=== PATIENT | female | born 1940 | race Caucasian/White ===

== ENCOUNTER 2025-02-10 01:35 | Emergency (ER) | payer MEDICARE, SELFPAY ==
[2025-02-10] VITALS (8 sets, daily range): BP systolic 142–192; BP diastolic 56–83; BMI 23.0
[2025-02-10] MEDS: ZOFRAN 4 MG IV (03:23)
[2025-02-10] MEDS: NSS 500 IV (03:23)
[2025-02-10 04:05] LABS: Hematocrit 43.8 % (37.0-47.0); Hemoglobin 14.9 g/dL (12.0-16.0); Mean Corp Hgb Conc. 34.0 g/dL (33.0-37.0); Mean Corpuscular Volume 88.0 fL (81.0-99.0); Nucleated Red Blood Cells % 0 %; Platelet Count 222 10^3/uL (130-400); Red Cell Dist. Width 12.4 % (11.5-14.5)
[2025-02-10 04:06] LABS: Urine Character Clear (Clear)
[2025-02-10 04:14] LABS: Urine Squamous Cell 0-2 /LPF (Few)
--- NOTE | 2025-02-10 04:18 | ED.GENMED ---
History of Present Illness
General
Chief Complaint: Abdominal Symptoms
Source: patient and family
Exam Limitations: none
Time Seen by Provider: 02/10/25 02:45
Nursing documentation reviewed up to this point in time: agreed with
History of Present Illness
History of Present Illness:
84-year-old female presenting to the emergency department today with concerns of left lower quadrant abdominal pain also has associated nausea vomiting diarrhea over the past 6 hours or so. Denies any chest pain shortness of breath. Denies fevers.
Review of Systems
Review of Systems
Allergies reviewed?: Yes
All Other Systems: ROS reviewed and negative except as documented in HPI and ROS
Phy Exam
Physical Exam
Physical Exam:
GENERAL: Alert , in no apparent distress
EYE: pupils equal and reactive
NECK: Supple, no significant adenopathy.
ENT: o/p clr, mmm.
CARDIAC: Regular rate and rhythm .
LUNGS: Clear breath sounds bilaterally, no acute respiratory distress, no wheezes/rales/rhonchi
ABDOMEN: Left lower quadrant pain to palpation otherwise soft benign abdomen.
NEUROLOGICAL: Alert and oriented, no focal neuro deficits
SKIN: Warm and dry, skin intact.
MUSCULOSKELETAL: No edema, well perfused.
PSYCH: Normal and appropriate interaction.
Course
Orders/Labs/Results
Orders:
Orders
02/10/25 03:13
CT Abd/Pel (IV only)-[facility] only Urgent
Comment:
Reason For Exam: llq pain
0.9% Sodium Chloride 500 ml [Nss] 500 ml IV BOLUS
Ondansetron Injectable [Zofran] 4 mg IV NOW STA
02/10/25 03:50
CBC/With Diff [Complete Blood Count/With Diff] Urgent
CMP [Comprehensive Metabolic Panel] Urgent
Urinalysis Reflex To Culture Urgent
Date Specimen was Collected: 02/10/25
Time Specimen was Collected: 03:41
Urine Microscopic Reflex Cult Urgent
02/10/25 05:24
Metoclopramide [Reglan] 5 mg IV NOW STA
02/10/25 05:31
Metoclopramide [Reglan] 10 mg .ROUTE .STK-MED ONE
Abnormal Lab Results
02/10/25
03:50
WBC 14.8 H 10^3/uL
(4.8-10.8)
Abs Immat Gran (auto) 0.1 H 10^3/uL
(0-0.05)
Absolute Neuts (auto) 13.6 H 10^3/uL
(1.4-6.5)
Absolute Lymphs (auto) 0.6 L 10^3/uL
(1.2-3.4)
Neutrophils % 91.5 H %
(42.2-75.2)
Lymphocytes % 4.3 L %
(20.5-51.1)
Creatinine 0.5 L mg/dL
(0.6-1.0)
Glucose 174 H mg/dl
(70-99)
AST 55 H U/L
(14-36)
ALT 40 H U/L
(0-35)
Urine Ketones 3+ A
(Negative)
Ur Occult Blood Reflex 4+ A
(Negative)
Urine RBC 7-10 A /HPF
(0-2)
Urine Glucose 3+ A
(Negative)
Urine Albumin (Reflex) 2+ A
(Neg - Trace)
02/10/25 03:50
02/10/25 03:50
Vital Signs
Initial and Last Documented VS:
Initial Vital Signs
Temp Pulse Resp BP Pulse Ox
98.2 F 70 16 187/69 95
02/10/25 01:40 02/10/25 01:40 02/10/25 01:40 02/10/25 01:40 02/10/25 01:40
Last Documented Vital Signs
Temp Pulse Resp BP Pulse Ox
98.2 F 70 15 142/56 97
02/10/25 01:40 02/10/25 06:15 02/10/25 06:15 02/10/25 06:00 02/10/25 06:15
MDM/Problems Addressed
MDM/Problems Addressed:
85-year-old female presenting to the emergency department today with concerns of left lower quadrant abdominal pain associated nausea vomiting diarrhea over the past 6 hours. Patient does have reproducible pain to the left lower quadrant plan for
CT scan for further assessment. CT scan without emergent findings explaining patient's symptoms. Did have listed nonspecific hypodensities in the spleen which likely is incidental finding as she does not have any pain in the left upper quadrant.
Because of potential adenoma of the left adrenal nodule. Advised for close outpatient follow-up for monitoring. Otherwise feeling much better here able to tolerate by mouth stable for discharge. Return precautions given.
*Pulse Oximetry
SaO2: 95
Oxygen Mode of Delivery: Room air
Patient hypoxic: no (97)
*Critical Care Note
Total Time (30-74mins, 75-104mins- exclusive of procedures): Not Applicable
ED Attending Note
-
Portions of this chart may have been created with voice recognition software.� Occasional wrong word or��sound alike� substitutions may have occurred due to the inherent limitations of voice recognition software.
Discharge Plan
Departure
Patient Disposition: Home (Routine Discharge)
Date of Disposition: 02/10/25
Time of Disposition: 06:38
Patient with high blood pressure during this ER visit?: No
Condition: Good
Covid-19: Not Applicable
Discharge Problem:
Abdominal pain, Nausea vomiting and diarrhea
Instructions: Abdominal Pain
Prescriptions:
New
metoclopramide HCl 5 mg tablet
5 mg PO AC Qty: 10 0RF
Referrals:
Tammie Wright NP [Family Provider]
Activity Restrictions/Additional Instructions:
You came to the emergency department today with concerns of abdominal pain nausea vomiting diarrhea. Here you had a reassuring assessment. No emergent findings on labs. Your CT scan did not show anything emergent. There were some incidental
findings including some nonspecific hypodensities of the spleen as well as a small nodule to the left adrenal. Please follow-up with your primary care doctor for monitoring of these. Otherwise take the prescribed medication to help with nausea.
Return for any worsening, new or concerning symptoms.
Interventions
Interventions:
*Risk Screen - Suicide Last Done: 02/10/25 01:48
*General Assessment Last Done: 02/10/25 01:47
*Neglect/Abuse Screening Last Done: 02/10/25 01:48
*ED- Fall Risk Assessment Last Done: 02/10/25 01:47
*ED COVID-19 Vaccine History Last Done: 02/10/25 01:47
*ED Influenza Vaccine History Last Done: 02/10/25 01:47
LN-Ururlb-Zqemiircvl Assessment Last Done: 02/10/25 01:48
Discharge Date and Time
Print Language: SAMI
[2025-02-10 04:26] LABS: ALT (SGPT) 40 U/L (0-35); AST (SGOT) 55 U/L (14-36); Albumin 4.6 g/dl (3.5-5.0); Alkaline Phosphatase 77 U/L (38-126); Blood Urea Nitrogen 15 mg/dl (7-17); Calcium 8.5 mg/dl (8.4-10.2); Carbon Dioxide 23 mmol/L (22-30); Chloride 106 mmol/L (98-107); Estimated Creatinine Clearance 60 ml/min; Glucose 174 mg/dl (70-99); Potassium 3.5 mmol/L (3.5-5.1); Sodium 138 mmol/L (135-145); Total Protein 7.1 g/dl (6.3-8.2); eGFR > 60.00
[2025-02-10] MEDS: REGLAN 5 MG IV (05:29)
== END 2025-02-10 07:30 | disposition home or self-care (01) ==
LOC: EMR 01:35
PROVIDERS: Physician Assistant; EMERGENCY PHYSICIAN Emergency Medicine; FAMILY PHYSICIAN Nurse Practitioner Adult Health
DX: R10.32 Left lower quadrant pain (principal); R11.2 Nausea with vomiting, unspecified; R19.7 Diarrhea, unspecified
CPT/HCPCS: 99284; 96374; 96375; 96361; 74177; 80053; 81003; 81015; 85025; Q9967